=== PATIENT | male | born 1970 | race Caucasian/White ===

== ENCOUNTER 2024-06-02 23:30 | Emergency (ER) | payer BC ==
[2024-06-02] MEDS ORDERED: LIDOCAINE 1% 20 ML MDV ONE (23:45)
--- NOTE | 2024-06-03 00:14 | EDPHYS ---
Physician Documentation [facility] Name: Shamar Davis Age: 54 yrs Sex: Male : 1970 Arrival Date: 06/02/2024 Time: 23:30 Bed 2 Private MD: ED Physician Yogesh Abrams HPI: 06/02 23:35 This 54 yrs old Male presents to ER via Unassigned with complaints of sp4 Laceration To Hand, Pt is on Warfarin. 06/03 20:30 This is a 54-year-old male who presents with left hand left thenar eminence laceration sp4 at home via kitchen knife. Patient states he takes warfarin secondary to history of heart valve replacement.. Historical: - Allergies: 06/02 23:51 all antibiotics, can only take amoxicillin; vc1 - Home Meds: 23:51 warfarin 7.5 mg Oral tablet daily [Active]; vc1 - PMHx: 23:51 Atrial fibrillation; vc1 - PSHx: 23:51 carbon fiber aortic valve; Cholecystectomy; vc1 - Immunization history:: Client reports having NOT received the Covid vaccine. Last tetanus immunization: > 10 years ago Flu vaccine is not up to date. Patient has never been vaccinated. - Infectious Disease History:: Denies. - Social history:: Smoking status: Patient denies any tobacco usage or history of. - Family history:: not pertinent. ROS: 06/03 20:30 Constitutional: Negative for fever, chills, and weight loss, positive for left hand sp4 laceration All other systems are negative, Exam: 22:23 Constitutional: This is a well developed, well nourished patient who is awake, alert, sp4 and in no acute distress. Head/Face: Normocephalic, atraumatic. Eyes: Pupils equal round and reactive to light, extra-ocular motions intact. Lids and lashes normal. Conjunctiva and sclera are not injected. Cornea within normal limits. Periorbital areas with no swelling, redness, or edema. ENT: Nares patent. No nasal discharge, no septal abnormalities noted. Tympanic membranes are normal and external auditory canals are clear. Oropharynx with no redness, swelling, or masses, exudates, or evidence of obstruction, uvula midline. Mucous membranes moist. Neck: Trachea midline, no thyromegaly or masses palpated, and no cervical lymphadenopathy. Supple, full range of motion without nuchal rigidity, or vertebral point tenderness. Chest/axilla: Normal chest wall appearance and motion. Nontender with no deformity. No lesions are appreciated. Cardiovascular: Regular rate and rhythm with a normal S1 and S2. No gallops, murmurs, or rubs. Normal PMI, no JVD. No pulse deficits. Respiratory: Lungs have equal breath sounds bilaterally, clear to auscultation and percussion. No rales, rhonchi or wheezes noted. No increased work of breathing, no retractions or nasal flaring. Abdomen/GI: Soft, with normal bowel sounds. No distension or tympany. No guarding or rebound. No evidence of tenderness throughout. Back: No spinal tenderness. No costovertebral tenderness. Skin: Warm, dry with normal turgor. Normal color with no rashes, no lesions, and no evidence of cellulitis. MS/ Extremity: Pulses equal, no cyanosis. Neurovascular intact. Full, normal range of motion. positive for left thenar eminence laceration 3 cm long and transverse orientation, only bleeding on exam without pulsatile bleeding Neuro: Awake and alert, GCS 15, oriented to person, place, time, and situation. Cranial nerves II-XII grossly intact. Motor strength 5/5 in all extremities. Sensory grossly intact. Psych: Awake, alert, with orientation to person, place and time. Behavior, mood, and affect are within normal limits Vital Signs: 06/02 23:48 BP 137 / 79; Pulse 77; Resp 17; Temp 97.8; Pulse Ox 99% ; Weight 115.67 kg; Height 6 vc1 ft. 3 in. ; Pain 2/10; 06/03 00:30 BP 116 / 70; Pulse 75; Resp 16; Pulse Ox 99% ; vc1 06/02 23:48 Body Mass Index 31.87 (115.67 kg, 190.5 cm) vc1 06/02 23:48 Pain Scale: Adult vc1 [place] Coma Score: 22:23 Eye Response: spontaneous(4). Motor Response: obeys commands(6). Verbal Response: sp4 oriented(5). Total: 15. Laceration: 00:09 Wound Repair of 3cm ( 1.2in ) subcutaneous laceration to heel of left hand - Left sp4 thenar eminence 3 cm laceration . Linear shaped.. Profuse bleeding noted.. Distal neuro/vascular/tendon intact. Anesthesia: Wound infiltrated with 20 mls of 1% lidocaine. Wound prep: Moderate cleansing with betadine by me. Skin closed with 5 4-0 Silk using vertical mattress sutures and sterile technique. Dressed with 4x4's, Kerlix, pressure dressing. Patient tolerated well. MDM: 00:14 Medical Screening Exam initiated sp4 22:24 Differential diagnosis: superficial laceration, tendon injury, vascular injury. Data sp4 reviewed: vital signs, nurses notes. Data reviewed: old medical records. ED course: Patient was fixed, patient stable for discharge home. Suture Removal advised after 14 days. 06/02 23:43 Order name: Dressing - Wound; Complete Time: 23:56 sp4 06/02 23:43 Order name: Gloves, Sterile; Complete Time: 23:56 sp4 06/02 23:43 Order name: Setup Suture Tray; Complete Time: 23:56 sp4 Administered Medications: 06/02 23:56 Drug: Lidocaine Infiltration (1 %) 20 ml 20 ml Infiltration once; to bedside {Note: vc1 administered by Dr. Abrams to left thumb .} Volume: 20 ml; Route: Infiltration; 06/03 00:21 Drug: Boostrix Tdap IM 0.5 ml IM once; as a single dose Route: IM; Site: left deltoid; vc1 00:35 Follow up: Response: No adverse reaction vc1 Disposition Summary: 06/03/24 00:14 Discharge Ordered Notes: Suture removal advised After 14 days Location: Home sp4 Problem: new sp4 Symptoms: have improved sp4 Condition: Stable sp4 Diagnosis - Laceration without foreign body of left hand, initial encounter sp4 - Left hand thenar eminence laceration , initial encounter sp4 Followup: sp4 - With: Private Physician - When: 10 - 14 days - Reason: Recheck today's complaints Discharge Instructions: - Discharge Summary Sheet sp4 - Laceration Care, Adult sp4 Forms: - Patient Portal Instructions sp4 Signatures: Serena Avendano RN RN vc1 Yogesh Abrams MD MD sp4
--- NOTE | 2024-06-03 00:14 | ER ---
Nurse's Notes [facility] Name: Shamar Davis Age: 54 yrs Sex: Male : 1970 Arrival Date: 06/02/2024 Time: 23:30 Bed 2 Private MD: Diagnosis: Laceration without foreign body of left hand, initial encounter;Left hand thenar eminence laceration , initial encounter Presentation: 06/02 23:48 Chief complaint: Patient states: Cutting redfish hit the redfish bone and knife broke vc1 causing him to cut thumb on left hand. Coronavirus screen: Vaccine status: Patient reports being unvaccinated. Client denies travel out of the [place] in the last 14 days. At this time, the client does not indicate any symptoms associated with coronavirus-19. Ebola Screen: Patient negative for fever greater than or equal to 101.5 degrees Fahrenheit, and additional compatible Ebola Virus Disease symptoms Patient denies exposure to infectious person. Patient denies travel to an Ebola-affected area in the 21 days before illness onset. No symptoms or risks identified at this time. Complicating Factors: There are no complicating factors for this patient. Initial Sepsis Screen: Does the patient meet any 2 criteria? No. Patient's initial sepsis screen is negative. Does the patient have a suspected source of infection? No. Patient's initial sepsis screen is negative. Risk Assessment: Do you want to hurt yourself or someone else? Patient reports no desire to harm self or others. Onset of symptoms was June 02, 2024. 23:48 Method Of Arrival: Ambulatory vc1 23:48 Acuity: ANNE-MARIE 3 vc1 Triage Assessment: 23:54 General: Appears in no apparent distress. uncomfortable, Behavior is calm, cooperative, vc1 appropriate for age. Pain: Complains of pain in left thumb Pain does not radiate. Pain currently is 3 out of 10 on a pain scale. EENT: No deficits noted. No signs and/or symptoms were reported regarding the EENT system. Neuro: Level of Consciousness is awake, alert, obeys commands, Oriented to person, place, time, situation, Appropriate for age. Cardiovascular: Heart tones S1 S2 present Capillary refill < 3 seconds Patient's skin is warm and dry. Respiratory: Airway is patent Respiratory effort is even, unlabored, Respiratory pattern is regular, symmetrical, Breath sounds are clear bilaterally. GI: No deficits noted. No signs and/or symptoms were reported involving the gastrointestinal system. : No deficits noted. No signs and/or symptoms were reported regarding the genitourinary system. Derm: Wound noted left thumb. Musculoskeletal: No deficits noted. No signs and/or symptoms reported regarding the musculoskeletal system. Injury Description: Laceration. Historical: - Allergies: 23:51 all antibiotics, can only take amoxicillin; vc1 - Home Meds: 23:51 warfarin 7.5 mg Oral tablet daily [Active]; vc1 - PMHx: 23:51 Atrial fibrillation; vc1 - PSHx: 23:51 carbon fiber aortic valve; Cholecystectomy; vc1 - Immunization history:: Client reports having NOT received the Covid vaccine. Last tetanus immunization: > 10 years ago Flu vaccine is not up to date. Patient has never been vaccinated. - Infectious Disease History:: Denies. - Social history:: Smoking status: Patient denies any tobacco usage or history of. - Family history:: not pertinent. Screenin:54 [facility] ED Fall Risk Assessment (Adult) History of falling in the last 3 months, vc1 including since admission No falls in past 3 months (0 pts) Confusion or Disorientation No (0 pts) Intoxicated or Sedated No (0 pts) Impaired Gait No (0 pts) Mobility Assist Device Used No (0 pt) Altered Elimination No (0 pt) Score/Fall Risk Level 0 - 2 = Low Risk Oriented to surroundings, Maintained a safe environment, Educated pt \T\ family on fall prevention, incl call for assistance when getting out of bed. Abuse screen: Denies threats or abuse. Nutritional screening: No deficits noted. Tuberculosis screening: No symptoms or risk factors identified. Assessment: 23:57 General: see triage assessment. vc1 23:57 Injury Description: Laceration is contaminated, 0.5 to 2.5 cm long, bleeding moderately.vc1 06/03 00:30 Reassessment: Patient and/or family updated on plan of care and expected duration. Pain vc1 level reassessed. Patient is alert, oriented x 3, equal unlabored respirations, skin warm/dry/pink. Patient states feeling better. Patient states symptoms have improved. Vital Signs: 06/02 23:48 BP 137 / 79; Pulse 77; Resp 17; Temp 97.8; Pulse Ox 99% ; Weight 115.67 kg; Height 6 vc1 ft. 3 in. ; Pain 2/10; 06/03 00:30 BP 116 / 70; Pulse 75; Resp 16; Pulse Ox 99% ; vc1 06/02 23:48 Body Mass Index 31.87 (115.67 kg, 190.5 cm) vc1 06/02 23:48 Pain Scale: Adult vc1 [place] Coma Score: 22:23 Eye Response: spontaneous(4). Motor Response: obeys commands(6). Verbal Response: sp4 oriented(5). Total: 15. ED Course: 06/02 23:33 Patient arrived in ED. [id number] 23:35 Yogesh Abrams MD is Attending Physician. sp4 23:51 Triage completed. vc1 23:53 Arm band placed on right wrist. vc1 23:53 Patient has correct armband on for positive identification. Bed in low position. Call vc1 light in reach. Pulse ox on. NIBP on. 06/03 00:12 Serena Avendano RN is Primary Nurse. vc1 00:37 Assist provider with laceration repair on left thumb that was 2.5 cm. or less using vc1 sutures. Set up tray. Performed by Yogesh Abrams MD Dressed with 4X4s, Kerlix, wendy wrap. Patient did not have IV access during this emergency room visit. 00:38 Provided Education on: wound care; follow up with PCP in 14 days. vc1 Administered Medications: 06/02 23:56 Drug: Lidocaine Infiltration (1 %) 20 ml 20 ml Infiltration once; to bedside {Note: vc1 administered by Dr. Abrams to left thumb .} Volume: 20 ml; Route: Infiltration; 06/03 00:21 Drug: Boostrix Tdap IM 0.5 ml IM once; as a single dose Route: IM; Site: left deltoid; vc1 00:35 Follow up: Response: No adverse reaction vc1 Medication: 06/02 23:54 VIS not applicable for this client. vc1 Outcome: 06/03 00:14 Discharge ordered by MD. sp4 00:38 Discharged to home ambulatory, vc1 00:38 Condition: good 00:38 Discharge instructions given to patient, Instructed on discharge instructions, follow up and referral plans. wound care, Demonstrated understanding of instructions, follow-up care, wound care, 00:39 Patient left the ED. vc1 Signatures: Jocelyn Hua [id number] Serena Avendano RN RN vc1 Yogesh Abrams MD MD sp4
[2024-06-03] MEDS ORDERED: TDAP (DIPHTH,PERTUSS(ACELL),TET VAC) 0.5 ML VIAL IMVAC ONE (00:19)
[2024-06-03 06:23] VITALS: BP 137/79; TEMP 97.8; O2SAT 99
== END 2024-06-03 00:39 | disposition home or self-care (01) ==
LOC: ER 23:30
DX: S61.412A Laceration without foreign body of left hand, initial encounter (principal); I48.91 Unspecified atrial fibrillation; Z79.01 Long term (current) use of anticoagulants
CPT/HCPCS: 96372; 99284; 12042; J2001